=== PATIENT | female | born 1990 | race Caucasian/White ===

== ENCOUNTER 2016-06-27 05:48 | Inpatient (IN) | payer OTHER ==
[2016-06-27] MEDS ORDERED: Sodium Chloride 0.9% 10 ML Syringe FLUSH PRN (06:23)
[2016-06-27] MEDS ORDERED: Water For Irrigation,Sterile 1,000 ML Container IRR PRN (06:23)
[2016-06-27] MEDS ORDERED: Misoprostol 200 MCG Tab PO PRN (06:23)
[2016-06-27] MEDS ORDERED: Methylergonovine 0.2 MG/1 ML Amp IM PRN (06:23)
[2016-06-27] MEDS ORDERED: Butorphanol 1 MG/ML SDV IVPUSH PRN (06:23)
[2016-06-27] MEDS ORDERED: Lidocaine 1% 50 ML MDV INJECT PRN (06:23)
[2016-06-27] MEDS ORDERED: Carboprost Tromethamine 250 MCG/1 ML Amp IM PRN (06:23)
[2016-06-27] MEDS ORDERED: Ampicillin 2 GM in Sodium Chloride 0.9% 100 ML IV ONE (06:23)
[2016-06-27] MEDS ORDERED: Nalbuphine 10 MG/1 ML Vial IVPUSH PRN (06:23)
[2016-06-27] MEDS ORDERED: Sodium Chloride 0.9% 2.5 ML Syringe FLUSH PRN (06:23)
[2016-06-27] MEDS ORDERED: Oxytocin/Lactated Ringers 30 UNIT/500 ML BAG IV SCH ×2 (06:30→11:45)
[2016-06-27] MEDS: Lactated Ringers 1,000 ML IV SCH ×4 (06:50→19:37)
[2016-06-27] MEDS: Ampicillin 1 GM in Sodium Chloride 0.9% 50 ML IV SCH ×4 (11:34→23:22)
[2016-06-27] MEDS ORDERED: Terbutaline 1 MG/ML SDV SUBCUT PRN (11:42)
[2016-06-27] MEDS ORDERED: Ropivacaine HCl/PF 100 ML ONE (16:31)
[2016-06-27] MEDS ORDERED: fentaNYL 100 MCG/2 ML SDV ONE (16:31)
--- NOTE | 2016-06-27 17:11 | PCM.PREANE ---
Preanesthetic Assessment - Anesthesia/Transfusion/Family Hx Anesthesia History: Prior Anesthesia Without Reaction Transfusion History: No Prior Transfusion(s) - Review of Systems General: No Symptoms Pulmonary: No Symptoms Cardiovascular: No Symptoms Gastrointestinal: Nausea Neurological: No Symptoms Other: Reports: None - Physical Assessment Height: 5 ft 6 in Weight: 200 lb ASA Class: 1 Mental Status: Alert & Oriented x3 Airway Class: Mallampati = 2 Dentition: Reports: Normal Dentition Thyro-Mental Finger Breadths: 3 Mouth Opening Finger Breadths: 3 ROM/Head Extension: Full Lungs: Clear to auscultation, Normal respiratory effort Cardiovascular: Regular Rate, Regular Rhythm - Lab Values: Laboratory Last Values WBC 10.70 K/uL (4.0-11.0) 06/27/16 06:52 RBC 4.23 M/uL (4.30-5.90) L 06/27/16 06:52 Hgb 13.9 g/dL (12.0-16.0) 06/27/16 06:52 Hct 39.8 % (36.0-46.0) 06/27/16 06:52 MCV 94.1 fL (80.0-98.0) 06/27/16 06:52 MCH 32.9 pg (27.0-32.0) H 06/27/16 06:52 MCHC 34.9 g/dL (31.0-37.0) 06/27/16 06:52 RDW Std Deviation 40.7 fl (28.0-62.0) 06/27/16 06:52 RDW Coeff of Christiane 12 % (11.0-15.0) 06/27/16 06:52 Plt Count 229 K/uL (150-400) 06/27/16 06:52 MPV 9.30 fL (7.40-12.00) 06/27/16 06:52 Nucleated RBC % 0.0 /100WBC 06/27/16 06:52 Nucleated RBCs # 0 K/uL 06/27/16 06:52 Membrane Rupture POSITIVE 06/27/16 06:04 Blood Type AB NEGATIVE 06/27/16 06:52 Antibody Screen POSITIVE 06/27/16 06:52 Antibody Identification Anti-D 06/27/16 06:52 Crossmatch See Detail 06/27/16 06:52 - Allergies Allergies/Adverse Reactions: Allergies Allergy/AdvReac Type Severity Reaction Status Date / Time No Known Allergies Allergy Verified 06/27/16 06:21 - Blood Blood Available: No Product(s) Available: None - Anesthesia Plan Free Text/Narrative:: Labor Epidural Pre-Op Medication Ordered: None - Acknowledgements Anesthesia Type Planned: Epidural Pt an Appropriate Candidate for the Planned Anesthesia: Yes Alternatives and Risks of Anesthesia Discussed w Pt/Guardian: Yes Pt/Guardian Understands and Agrees with Anesthesia Plan: Yes PreAnesthesia Questionnaire GROUND LAYER History: Reports: Neurological History: Reports: Other (see below) (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) - Past Surgical History HEENT Surgical History: Reports: Tonsillectomy, Other (see below) Other HEENT Surgeries/Procedures: teeth extraction x2 - HOME MEDS Home Medications: Home Meds Vit W-Ca,Fe,FA(<1 mg) [ Vitamins] 1 tab PO DAILY 06/27/16 [ History] - CURRENT (IN HOUSE) MEDS Current Meds: Current Medications Butorphanol Tartrate (Stadol) 1 mg IVPUSH Q1H PRN PRN Reason: Pain Stop: 06/28/16 06:24 Carboprost Tromethamine (Hemabate Ds) 250 mcg IM ASDIRECTED PRN PRN Reason: Post Hemorrhage Lactated Ringer's (Ringers, Lactated) 1,000 mls @ 150 mls/hr IV ASDIRECTED MARY GRACE Last Admin: 06/27/16 17:01 Dose: 150 mls/hr Ampicillin Sodium 1 gm/ Sodium (Chloride) 50 mls @ 100 mls/hr IV Q4H MARY GRACE Last Admin: 06/27/16 15:35 Dose: 100 mls/hr Oxytocin/Lactated Ringer's (Pitocin In Lr 30 Units/500 Ml) 30 unit in 500 mls @ 2 mls/hr IV TITRATE MARY GRACE; 2 MUNITS/MIN PRN Reason: Protocol Last Titration: 06/27/16 16:02 Dose: 0 munits/min, 0 mls/hr Lidocaine HCl (Xylocaine 1%) 50 ml INJECT .ONCE PRN PRN Reason: Laceration repair Methylergonovine Maleate (Methergine) 0.2 mg IM ASDIRECTED PRN PRN Reason: Post Hemorrhage Misoprostol (Cytotec) 200 mcg PO .ONCE PRN PRN Reason: Post Hemorrhage Sodium Chloride (Saline Flush) 10 ml FLUSH ASDIRECTED PRN PRN Reason: Keep Vein Open Sodium Chloride (Saline Flush) 2.5 ml FLUSH ASDIRECTED PRN PRN Reason: Keep Vein Open Sterile Water (Sterile Water For Irrigation) 1,000 ml IRR ASDIRECTED PRN PRN Reason: delivery Terbutaline Sulfate (Brethine) 0.25 mg SUBCUT ASDIRECTED PRN PRN Reason: Tacysystole Discontinued Medications Fentanyl (Sublimaze) Confirm Administered Dose 100 mcg .ROUTE .STK-MED ONE Stop: 06/27/16 16:32 Ampicillin Sodium 2 gm/ Sodium (Chloride) 100 mls @ 200 mls/hr IV ONETIME ONE Stop: 06/27/16 06:52 Last Admin: 06/27/16 06:54 Dose: 200 mls/hr Oxytocin/Lactated Ringer's (Pitocin In Lr 30 Units/500 Ml) 30 unit in 500 mls @ 333 mls/hr IV TITRATE MARY GRACE Stop: 06/27/16 08:01 Ropivacaine (Naropin 0.2%) Confirm Administered Dose 100 mls @ as directed .ROUTE .STK-MED ONE Stop: 06/27/16 16:32 Nalbuphine HCl (Nubain) 10 mg IVPUSH Q1H PRN PRN Reason: Pain (severe 7-10) Stop: 06/27/16 08:24 Preanesthetic Assessment - PHYSICAL ASSESSMENT Height: 5 ft 6 in Weight: 200 lb - LAB Values: Laboratory Last Values WBC 10.70 K/uL (4.0-11.0) 06/27/16 06:52 RBC 4.23 M/uL (4.30-5.90) L 06/27/16 06:52 Hgb 13.9 g/dL (12.0-16.0) 06/27/16 06:52 Hct 39.8 % (36.0-46.0) 06/27/16 06:52 MCV 94.1 fL (80.0-98.0) 06/27/16 06:52 MCH 32.9 pg (27.0-32.0) H 06/27/16 06:52 MCHC 34.9 g/dL (31.0-37.0) 06/27/16 06:52 RDW Std Deviation 40.7 fl (28.0-62.0) 06/27/16 06:52 RDW Coeff of Christiane 12 % (11.0-15.0) 06/27/16 06:52 Plt Count 229 K/uL (150-400) 06/27/16 06:52 MPV 9.30 fL (7.40-12.00) 06/27/16 06:52 Nucleated RBC % 0.0 /100WBC 06/27/16 06:52 Nucleated RBCs # 0 K/uL 06/27/16 06:52 Membrane Rupture POSITIVE 06/27/16 06:04 Blood Type AB NEGATIVE 06/27/16 06:52 Antibody Screen POSITIVE 06/27/16 06:52 Antibody Identification Anti-D 06/27/16 06:52 Crossmatch See Detail 06/27/16 06:52 - ALLERGIES Allergies/Adverse Reactions: Allergies Allergy/AdvReac Type Severity Reaction Status Date / Time No Known Allergies Allergy Verified 06/27/16 06:21
[2016-06-28] MEDS ORDERED: Benzocaine/Menthol 20%-0.5% Spray 78 GM Cannister TOP PRN (01:22)
[2016-06-28] MEDS ORDERED: Docusate Sodium 100 MG Cap PO PRN (01:22)
[2016-06-28] MEDS ORDERED: Bisacodyl 10 MG Supp RECTAL PRN (01:22)
[2016-06-28] MEDS ORDERED: Lanolin 100% Cream 7 GM Tube TOP PRN (01:22)
[2016-06-28] MEDS ORDERED: Witch Hazel Medicated Pads 40/Jar TOP PRN (01:22)
[2016-06-28] MEDS ORDERED: oxyCODONE 5 MG Tab PO PRN (01:22)
[2016-06-28] MEDS ORDERED: Acetaminophen 500 MG Tab PO PRN (01:22)
--- NOTE | 2016-06-28 02:45 | OR ---
SURGEON: Emily Del Rosario DATE OF PROCEDURE: 06/28/2016 BRIEF PRE-DELIVERY HISTORY: This is a 26-year-old G1, P0, who on June 27, 2016, presented to Labor and Delivery with complaints of leakage of fluid. The patient was noted to be ruptured at 36 weeks and 1 day. The patient's GBS was unknown and the patient was started on IV ampicillin for GBS prophylaxis. The patient was eventually started on IV Pitocin for induction of labor secondary to no significant change in cervix over time. The patient eventually received her epidural at approximately 7 to 8 cm dilation. The patient continued to labor and eventually reached complete status. The patient started maternal expulsive efforts. With maternal expulsive efforts secondary to the patient being unrested and tired, the patient pushed for approximately an hour and started to fatigue and had minimal pushing efforts. With this noted and secondary to the fetus being , the patient was offered time to rest in order to get some energy, so that she would have increased efforts with pushing. The patient was allowed to rest approximately 45 minutes and maternal expulsive efforts were restarted and were successful. PREOPERATIVE DIAGNOSES: 1. Intrauterine at 36 weeks and 2 days. 2. Group B streptococcus unknown, on IV ampicillin. 3. premature rupture of membranes. 4. Induction of labor with IV Pitocin. POSTOPERATIVE DIAGNOSES: 1. Intrauterine at 36 weeks and 2 days. 2. Delivered. 3. Second-degree midline perineal laceration. PROCEDURE PERFORMED: 1. Spontaneous-assisted vaginal delivery. 2. Repair of midline second-degree perineal laceration. ANESTHESIA: Epidural. ESTIMATED BLOOD LOSS: 250 mL. FINDINGS: A viable female infant in vertex presentation with score of 7 and 9 at 1 and 5 minutes respectively and weight was pending at the time of dictation. Midline second-degree perineal laceration. Battledore placenta with 5 cm accessory lobe that appeared intact. SPECIMEN REMOVED: Placenta. CONDITION: Postoperatively, the patient and tolerated the procedure well. COMPLICATIONS: None known. DESCRIPTION OF PROCEDURE: This female, under epidural anesthesia, delivered a viable female , with score of 7 and 9 at 1 and 5 minutes respectively and weight not available at the time of dictation. Delivery was via spontaneous assisted vaginal delivery with infant in vertex presentation. Upon delivery of 's vertex, the neck was checked and there was no nuchal to be reduced and infant restituted right occiput transverse and with gentle downward traction and anterior shoulder was delivered followed by the body. The was bulb suctioned at delivery and placed directly on mom's abdomen at maternal request. Infant had a spontaneous cry. Cord was doubly clamped and cut. Cord blood was collected and sent for analysis. After delivery of the , IV Pitocin was given in bolus fashion as an uterotonic to prevent excessive maternal blood loss and to help expel the placenta. With signs of placental separation, a fundal massage was given along with traction on the umbilical cord and an intact appearing battledore placenta with approximately 5 cm accessory lobe was delivered. After delivery of infant and placenta, the vagina, perineum, and rectum were explored and patient had a midline second-degree perineal laceration that was repaired with a 2-0 Vicryl suture and 3-0 Vicryl suture. The crown stitches were placed with 2-0 Vicryl suture to reinforce the bulbocavernosus muscle and the remainder was repaired with 3-0 Vicryl suture in the usual three layer fashion. Afterwards, the lower uterine segment and vagina was cleared of all clots and debris. Afterwards, the patient was cleansed, pads were changed, and the bed was returned to functioning status. The patient and tolerated the procedure well and was in maternal arms bonding at the end of procedure. Sponge, lap, needle, and instrument counts were correct. MICHELE / CLARK /[id number] JUSTIN
--- NOTE | 2016-06-28 08:26 | PCM.PNPP ---
- General Info Date of Service: 06/28/16 Functional Status: Reports: pain controlled, tolerating diet, ambulating, urinating - Review of Systems General: Reports: No Symptoms HEENT: Reports: no symptoms Pulmonary: Reports: no symptoms Cardiovascular: Reports: No Symptoms Gastrointestinal: Reports: No symptoms Genitourinary: Reports: no symptoms Musculoskeletal: Reports: no symptoms Skin: Reports: no symptoms Neurological: Reports: No Symptoms Psychiatric: Reports: no symptoms - General Info Date of Service: 06/28/16 - Patient Data Vital Signs - most recent: Last Vital Signs Temp 36.9 C 06/28/16 05:10 Pulse 110 H 06/28/16 05:10 Resp 15 06/28/16 05:10 BP 125/84 06/28/16 05:10 Pulse Ox 98 06/28/16 05:10 Weight - most recent: 90.718 kg Lab Results - last 24 hrs: Laboratory Results - last 24 hr 06/27/16 06/28/16 Range/Units 06:52 01:22 Blood Type AB NEGATIVE Antibody Screen POSITIVE Antibody Identification Anti-D Rhogam Indicated NO, MOM+BABY RH NEG Crossmatch See Detail Med Orders - Current: Current Medications Acetaminophen (Tylenol Extra Strength) 500 mg PO Q4H PRN PRN Reason: Pain Benzocaine/Menthol (Dermoplast Pain Relief 20%-0.5% [place]) 78 gm TOP ASDIRECTED PRN PRN Reason: Perineal Comfort Measure Last Admin: 06/28/16 04:38 Dose: 1 canister Bisacodyl (Dulcolax) 10 mg RECTAL .ONCE PRN PRN Reason: Constipation Carboprost Tromethamine (Hemabate Ds) 250 mcg IM ASDIRECTED PRN PRN Reason: Post Hemorrhage Docusate Sodium (Colace) 100 mg PO BID PRN PRN Reason: Constipation Emollient Ointment (Lansinoh Hpa) 0 gm TOP ASDIRECTED PRN PRN Reason: Sore Nipples Last Admin: 06/28/16 04:39 Dose: 1 tube Lactated Ringer's (Ringers, Lactated) 1,000 mls @ 150 mls/hr IV ASDIRECTED MARY GRACE Last Admin: 06/27/16 19:37 Dose: 150 mls/hr Ampicillin Sodium 1 gm/ Sodium (Chloride) 50 mls @ 100 mls/hr IV Q4H MARY GRACE Last Admin: 06/27/16 23:22 Dose: 100 mls/hr Oxytocin/Lactated Ringer's (Pitocin In Lr 30 Units/500 Ml) 30 unit in 500 mls @ 2 mls/hr IV TITRATE MARY GRACE; 2 MUNITS/MIN PRN Reason: Protocol Last Titration: 06/28/16 01:07 Dose: Infused Ibuprofen (Motrin) 800 mg PO Q6H PRN PRN Reason: Pain Lidocaine HCl (Xylocaine 1%) 50 ml INJECT .ONCE PRN PRN Reason: Laceration repair Methylergonovine Maleate (Methergine) 0.2 mg IM ASDIRECTED PRN PRN Reason: Post Hemorrhage Misoprostol (Cytotec) 200 mcg PO .ONCE PRN PRN Reason: Post Hemorrhage Oxycodone HCl (Oxycodone) 5 mg PO Q2H PRN PRN Reason: Pain Sodium Chloride (Saline Flush) 10 ml FLUSH ASDIRECTED PRN PRN Reason: Keep Vein Open Sodium Chloride (Saline Flush) 2.5 ml FLUSH ASDIRECTED PRN PRN Reason: Keep Vein Open Sterile Water (Sterile Water For Irrigation) 1,000 ml IRR ASDIRECTED PRN PRN Reason: delivery Terbutaline Sulfate (Brethine) 0.25 mg SUBCUT ASDIRECTED PRN PRN Reason: Tacysystole Witch Emily (Tucks) 1 pad TOP ASDIRECTED PRN PRN Reason: comfort care Last Admin: 06/28/16 04:38 Dose: 1 tub Discontinued Medications Butorphanol Tartrate (Stadol) 1 mg IVPUSH Q1H PRN PRN Reason: Pain Stop: 06/28/16 06:24 Fentanyl (Sublimaze) Confirm Administered Dose 100 mcg .ROUTE .STK-MED ONE Stop: 06/27/16 16:32 Ampicillin Sodium 2 gm/ Sodium (Chloride) 100 mls @ 200 mls/hr IV ONETIME ONE Stop: 06/27/16 06:52 Last Admin: 06/27/16 06:54 Dose: 200 mls/hr Oxytocin/Lactated Ringer's (Pitocin In Lr 30 Units/500 Ml) 30 unit in 500 mls @ 333 mls/hr IV TITRATE MARY GRACE Stop: 06/27/16 08:01 Ropivacaine (Naropin 0.2%) Confirm Administered Dose 100 mls @ as directed .ROUTE .STK-MED ONE Stop: 06/27/16 16:32 Nalbuphine HCl (Nubain) 10 mg IVPUSH Q1H PRN PRN Reason: Pain (severe 7-10) Stop: 06/27/16 08:24 - Interaction Infant Disposition, : in Room with Family Infant Feeding: Breastfed Infant; Nursed Well Support Person: - Recovery Exam Fundal Tone: Firm Fundal Level: 2 Fingerbreadths Below Umbilicus Fundal Placement: Midline Lochia Amount: Small Lochia Color: Rubra/Red Episiotomy/Laceration: Approximated Bladder Status: Voiding Urinary Elimination: Voided - Exam General: alert, oriented HEENT: Pupils equal Neck: supple Lungs: Normal respiratory effort Abdomen: soft, no tenderness, no distension Extremities: no edema Skin: warm, dry, intact Neurological: no new focal deficit Psy/Mental Status: alert, normal affect, normal mood - Problem List & Annotations (1) premature rupture of membranes (PPROM) delivered, current hospitalization SNOMED Code(s): 169687108 Code(s): O42.919 - PRETRM PEYTON ROM, UNSP TIME BETW RUPT AND ONST LABR, UNSP TRI Status: Acute Current Visit: Yes - Problem List Review Problem List Initiated/Reviewed/Updated: Yes - My Orders Last 24 Hours: My Active Orders 06/27/16 11:30 Ampicillin 1 gm Sodium Chloride 0.9% [Normal Saline] 50 ml IV Q4H 06/27/16 11:42 Bedrest Bathroom Privileges [RC] ASDIRECTED Communication Order [RC] ASDIRECTED Communication Order [RC] ASDIRECTED Notify Provider [RC] PRN Oxygen Therapy [RC] ASDIRECTED Vaginal Exam [RC] PRN Vital Signs [RC] PER UNIT ROUTINE Terbutaline [Brethine] 0.25 mg SUBCUT ASDIRECTED PRN 06/27/16 11:45 Oxytocin/Lactated Ringers [Pitocin in LR 30 Units/500 ML] 30 unit in 500 ml IV TITRATE Medication Administration Instruction [OM.PC] Q3H 06/28/16 08:20 CBC W/O DIFF,HEMOGRAM [HEME] Routine - Assessment Assessment:: PPD#0 after later , stable, minimal lochia, has not used any pain medications. Would like to go home today if approved by peds - Plan Plan:: Continue care, discharge instructions reviewed will get CBC now, if stable, remove IV ok to be discharged if baby is approved to go home
[2016-06-28] MEDS: Ibuprofen 800 MG Tab PO PRN ×2 (10:18→18:52)
--- NOTE | 2016-06-28 16:00 | PCM48HPAN ---
Post Anesthesia Note - EVALUATION WITHIN 48HRS OF ANESTHETIC Vital Signs in Normal Range: Yes Patient Participated in Evaluation: Yes Respiratory Function Stable: Yes Airway Patent: Yes Cardiovascular Function Stable: Yes Hydration Status Stable: Yes Pain Control Satisfactory: Yes Nausea and Vomiting Control Satisfactory: Yes Mental Status Recovered: Yes
[2016-06-29] MEDS: Ampicillin 1 GM in Sodium Chloride 0.9% 50 ML IV SCH ×2 (00:58→00:59)
[2016-06-29 08:23] VITALS: BP 115/80
--- NOTE | 2016-06-29 08:47 | PCM.PNPP ---
- General Info Date of Service: 06/29/16 Functional Status: Reports: pain controlled, tolerating diet, ambulating, urinating - Review of Systems General: Reports: No Symptoms HEENT: Reports: no symptoms Pulmonary: Reports: no symptoms Cardiovascular: Reports: No Symptoms Gastrointestinal: Reports: No symptoms Genitourinary: Reports: no symptoms Musculoskeletal: Reports: no symptoms Skin: Reports: no symptoms Neurological: Reports: No Symptoms Psychiatric: Reports: no symptoms - Patient Data Vital Signs - most recent: Last Vital Signs Temp 36.8 C 06/29/16 08:00 Pulse 80 06/29/16 08:00 Resp 14 06/29/16 08:00 BP 115/80 06/29/16 08:00 Pulse Ox 98 06/29/16 08:00 Weight - most recent: 90.718 kg Lab Results - last 24 hrs: Laboratory Results - last 24 hr 06/29/16 Range/Units 04:08 Hgb 12.5 (12.0-16.0) g/dL Hct 36.3 (36.0-46.0) % Med Orders - Current: Current Medications Acetaminophen (Tylenol Extra Strength) 500 mg PO Q4H PRN PRN Reason: Pain Benzocaine/Menthol (Dermoplast Pain Relief 20%-0.5% [place]) 78 gm TOP ASDIRECTED PRN PRN Reason: Perineal Comfort Measure Last Admin: 06/28/16 04:38 Dose: 1 canister Bisacodyl (Dulcolax) 10 mg RECTAL .ONCE PRN PRN Reason: Constipation Carboprost Tromethamine (Hemabate Ds) 250 mcg IM ASDIRECTED PRN PRN Reason: Post Hemorrhage Docusate Sodium (Colace) 100 mg PO BID PRN PRN Reason: Constipation Emollient Ointment (Lansinoh Hpa) 0 gm TOP ASDIRECTED PRN PRN Reason: Sore Nipples Last Admin: 06/28/16 04:39 Dose: 1 tube Lactated Ringer's (Ringers, Lactated) 1,000 mls @ 150 mls/hr IV ASDIRECTED [facility] Last Admin: 06/27/16 19:37 Dose: 150 mls/hr Ampicillin Sodium 1 gm/ Sodium (Chloride) 50 mls @ 100 mls/hr IV Q4H [facility] Last Admin: 06/29/16 00:59 Dose: Not Given Oxytocin/Lactated Ringer's (Pitocin In Lr 30 Units/500 Ml) 30 unit in 500 mls @ 2 mls/hr IV TITRATE MARY GRACE; 2 MUNITS/MIN PRN Reason: Protocol Last Titration: 06/28/16 01:07 Dose: Infused Ibuprofen (Motrin) 800 mg PO Q6H PRN PRN Reason: Pain Last Admin: 06/28/16 18:52 Dose: 800 mg Lidocaine HCl (Xylocaine 1%) 50 ml INJECT .ONCE PRN PRN Reason: Laceration repair Methylergonovine Maleate (Methergine) 0.2 mg IM ASDIRECTED PRN PRN Reason: Post Hemorrhage Misoprostol (Cytotec) 200 mcg PO .ONCE PRN PRN Reason: Post Hemorrhage Oxycodone HCl (Oxycodone) 5 mg PO Q2H PRN PRN Reason: Pain Sodium Chloride (Saline Flush) 10 ml FLUSH ASDIRECTED PRN PRN Reason: Keep Vein Open Sodium Chloride (Saline Flush) 2.5 ml FLUSH ASDIRECTED PRN PRN Reason: Keep Vein Open Sterile Water (Sterile Water For Irrigation) 1,000 ml IRR ASDIRECTED PRN PRN Reason: delivery Terbutaline Sulfate (Brethine) 0.25 mg SUBCUT ASDIRECTED PRN PRN Reason: Tacysystole Witch Emily (Tucks) 1 pad TOP ASDIRECTED PRN PRN Reason: comfort care Last Admin: 06/28/16 04:38 Dose: 1 tub Discontinued Medications Butorphanol Tartrate (Stadol) 1 mg IVPUSH Q1H PRN PRN Reason: Pain Stop: 06/28/16 06:24 Fentanyl (Sublimaze) Confirm Administered Dose 100 mcg .ROUTE .STK-MED ONE Stop: 06/27/16 16:32 Ampicillin Sodium 2 gm/ Sodium (Chloride) 100 mls @ 200 mls/hr IV ONETIME ONE Stop: 06/27/16 06:52 Last Admin: 06/27/16 06:54 Dose: 200 mls/hr Oxytocin/Lactated Ringer's (Pitocin In Lr 30 Units/500 Ml) 30 unit in 500 mls @ 333 mls/hr IV TITRATE MARY GRACE Stop: 06/27/16 08:01 Ropivacaine (Naropin 0.2%) Confirm Administered Dose 100 mls @ as directed .ROUTE .STK-MED ONE Stop: 06/27/16 16:32 Nalbuphine HCl (Nubain) 10 mg IVPUSH Q1H PRN PRN Reason: Pain (severe 7-10) Stop: 06/27/16 08:24 - Infant Interaction Disposition, : in Room with Family Feeding: Breastfed Infant; Nursed Well Support Person: - Recovery Exam Fundal Tone: Firm Fundal Level: 1 Fingerbreadths Below Umbilicus Fundal Placement: Midline Lochia Amount: Small Lochia Color: Rubra/Red Perineum Description: Intact, Minimal Bruising/Swelling Other Perinuem Description: 2nd degree perineal laceration Episiotomy/Laceration: Approximated Bladder Status: Voiding Urinary Elimination: Voided - Exam General: alert, oriented HEENT: Pupils equal Extremities: no edema Skin: warm, dry, intact Neurological: no new focal deficit Psy/Mental Status: alert, normal affect, normal mood - Problem List & Annotations (1) premature rupture of membranes (PPROM) delivered, current hospitalization SNOMED Code(s): 122627466 Code(s): O42.919 - PRETRM [place] ROM, UNSP TIME BETW RUPT AND ONST LABR, UNSP TRI Status: Acute Current Visit: Yes - Problem List Review Problem List Initiated/Reviewed/Updated: Yes - My Orders Last 24 Hours: My Active Orders 06/28/16 08:27 Ready for Discharge [RC] PER UNIT ROUTINE - Assessment Assessment:: PPD#1 stayed due to baby, she will go home today, is going well, no complaints, denies pain. - Plan Plan:: discharge instructions reviewed
== END 2016-06-29 13:00 | disposition home or self-care (01) | DRG 775 ==
LOC: MW.OBCHECK 05:48 → MW.OB 05:48 → MW.OBCHECK 06:23 → MW.OB 06:23 → OBSVTOIN 06-28 00:32 → MW.OB 06-28 14:00
PROVIDERS: ADMIT Obstetrics & Gynecology; ATTEND Obstetrics & Gynecology
PROC: 10E0XZZ Delivery of Products of Conception, External Approach (ICD-10-PCS; principal; 2016-06-28)
PROC: 0KQM0ZZ Repair Perineum Muscle, Open Approach (ICD-10-PCS; 2016-06-28)
DX: O42.013 Preterm premature rupture of membranes, onset of labor within 24 hours of rupture, third trimester (principal); Z3A.36 36 weeks gestation of pregnancy; Z37.0 Single live birth
CPT/HCPCS: 01967; 36415; 59025; 84112; 85014; 85018; 85027; 86850; 86870; 86900; 86901; 86920; 86921; 86922; 87081; 88307; A9270-GY; J0290; J2795; J3010; J7030; J7050; J7120

== ENCOUNTER 2019-05-28 05:39 | Inpatient (IN) | payer OTHER ==
[2019-05-28] MEDS ORDERED: Sodium Chloride 0.9% 10 ML Syringe FLUSH PRN (06:33)
[2019-05-28] MEDS ORDERED: Tranexamic Acid 1,000 MG in Sodium Chloride 0.9% 100 ML IV PRN ×2 (06:33→13:58)
[2019-05-28] MEDS ORDERED: Lidocaine 1% 50 ML MDV INJECT PRN (06:33)
[2019-05-28] MEDS ORDERED: Butorphanol 1 MG/ML SDV IVPUSH PRN (06:33)
[2019-05-28] MEDS ORDERED: Sodium Chloride 0.9% 10 ML SDV IV PRN (06:33)
[2019-05-28] MEDS ORDERED: Water For Irrigation,Sterile 1,000 ML Container IRR PRN (06:33)
[2019-05-28] MEDS ORDERED: Sodium Chloride 0.9% 2.5 ML Syringe FLUSH PRN (06:33)
[2019-05-28] MEDS ORDERED: Nalbuphine 10 MG/1 ML Vial IVPUSH PRN (06:33)
[2019-05-28] MEDS ORDERED: Methylergonovine 0.2 MG/1 ML Amp IM PRN ×2 (06:33→13:58)
[2019-05-28] MEDS ORDERED: Misoprostol 200 MCG Tab PO PRN (06:33)
[2019-05-28] MEDS ORDERED: Carboprost Tromethamine 250 MCG/1 ML Amp IM PRN (06:33)
[2019-05-28] MEDS ORDERED: Ampicillin 2 GM in Sodium Chloride 0.9% 100 ML IV ONE (06:40)
[2019-05-28] MEDS ORDERED: Oxytocin/0.9 % Sodium Chloride 30 UNIT/500 ML BAG IV SCH (06:45)
[2019-05-28] MEDS: Lactated Ringers 1,000 ML IV SCH ×2 (06:58→13:02)
[2019-05-28] MEDS ORDERED: Misoprostol 50 MCG (1/2 of 100 MCG) Tab VAG ONE (07:23)
[2019-05-28] MEDS ORDERED: Ampicillin 1 GM AdvVial IV ONE (10:20)
[2019-05-28] MEDS ORDERED: Sodium Chloride 0.9% 0 ML ONE (10:22)
[2019-05-28] MEDS ORDERED: Ampicillin 1 GM in Sodium Chloride 0.9% 50 ML IV SCH ×3 (10:45→11:00)
[2019-05-28] MEDS ORDERED: oxyCODONE 5 MG Tab PO PRN (13:58)
[2019-05-28] MEDS ORDERED: Witch Hazel Medicated Pads 40/Jar TOP PRN (13:58)
[2019-05-28] MEDS ORDERED: Acetaminophen 500 MG Tab PO PRN (13:58)
[2019-05-28] MEDS ORDERED: Lanolin 100% Cream 7 GM Tube TOP PRN (13:58)
[2019-05-28] MEDS ORDERED: Benzocaine/Menthol 20%-0.5% Spray 78 GM Cannister TOP PRN (13:58)
[2019-05-28] MEDS ORDERED: Docusate Sodium 100 MG Cap PO PRN (13:58)
[2019-05-28] MEDS ORDERED: Bisacodyl 10 MG Supp RECTAL PRN (13:58)
[2019-05-28] MEDS ORDERED: Ibuprofen 400 MG Tab PO PRN (13:58)
--- NOTE | 2019-05-28 14:04 | PCM.DEL ---
L & D Note - General Info Date of Service: 05/28/19 Mother's Due Date: 06/11/19 - Delivery Note Cervical Ripening Method: Misoprostil (PROM with cytotec induction) Delivery Outcome: Livebirth Infant Delivery Method: Spontaneous Vaginal Delivery-Single Presentation: Left Occiput Anterior (KIM) Nuchal Cord: None Prep: Other Anesthesia Type: Other (see below) (pudendal) Anesthetic: Lidocaine (Xylocaine) 0.5% Plain Local Anesthetic Volume: Other (20 ml ) Amniotic Fluid Description: Clear Episiotomy Type: None Laceration: 2nd Degree Suture type: Vicryl Suture size: 3-0 Placenta: Intact, Spontaneous Cord: 3 Vessels Estimated Blood Loss: 300 Resuscitation Needed: Yes : Suctioned, Bulb Syringe, Stimulated Score 1 min: 8 Score 5 min: 9 Delivery Comments (Free Text/Narrative):: Liveborn male weight pending. - General Info Date of Service: 05/28/19 - Patient Data Weight - Most Recent: 93.44 kg Lab Results Last 24 Hours: Laboratory Results - last 24 hr 05/28/19 05/28/19 05/28/19 Range/Units 05:50 06:53 06:53 WBC 11.16 H (4.0-11.0) K/uL RBC 4.01 L (4.30-5.90) M/uL Hgb 13.3 (12.0-16.0) g/dL Hct 38.8 (36.0-46.0) % MCV 96.8 (80.0-98.0) fL MCH 33.2 H (27.0-32.0) pg MCHC 34.3 (31.0-37.0) g/dL RDW Std Deviation 43.9 (28.0-62.0) fl RDW Coeff of Christiane 13 (11.0-15.0) % Plt Count 218 (150-400) K/uL MPV 9.00 (7.40-12.00) fL Nucleated RBC % 0.0 /100WBC Nucleated RBCs # 0 K/uL Membrane Rupture POSITIVE Blood Type AB NEGATIVE Antibody Screen POSITIVE Antibody Identification Anti-D Med Orders - Current: Current Medications Discontinued Medications Ampicillin Sodium (Ampicillin) Confirm Administered Dose 1 gm IV .STK-MED ONE Stop: 03/04/20 10:21 Butorphanol Tartrate (Stadol) 1 mg IVPUSH Q1H PRN PRN Reason: Pain Last Admin: 05/28/19 13:13 Dose: 1 mg Carboprost Tromethamine (Hemabate Ds) 250 mcg IM ASDIRECTED PRN PRN Reason: Post Hemorrhage Tranexamic Acid 1,000 mg/ (Sodium Chloride) 110 mls @ 660 mls/hr IV ONETIME PRN PRN Reason: Bleeding Ampicillin Sodium 2 gm/ Sodium (Chloride) 100 mls @ 200 mls/hr IV ONETIME ONE Stop: 05/28/19 07:09 Last Admin: 05/28/19 06:58 Dose: 200 mls/hr Lactated Ringer's (Ringers, Lactated) 1,000 mls @ 150 mls/hr IV ASDIRECTED MARY GRACE Last Admin: 05/28/19 13:02 Dose: 150 mls/hr Oxytocin/Sodium Chloride (Oxytocin 30 Unit/500 Ml-Ns) 30 unit in 500 mls @ 500 mls/hr IV TITRATE MARY GRACE Ampicillin Sodium 1 gm/ Sodium (Chloride) 50 mls @ 100 mls/hr IV Q4H MARY GRACE Ampicillin Sodium 1 gm/ Sodium (Chloride) 50 mls @ 100 mls/hr IV Q4H MARY GRACE Sodium Chloride (Normal Saline) Confirm Administered Dose 0 mls @ as directed .ROUTE .STK-MED ONE Stop: 05/28/19 10:23 Ampicillin Sodium 1 gm/ Sodium (Chloride) 50 mls @ 100 mls/hr IV Q4H MARY GRACE Last Admin: 05/28/19 10:47 Dose: 100 mls/hr Lidocaine HCl (Xylocaine 1%) 50 ml INJECT ONETIME PRN PRN Reason: Laceration repair Last Admin: 05/28/19 13:30 Dose: 50 ml Methylergonovine Maleate (Methergine) 0.2 mg IM ASDIRECTED PRN PRN Reason: Post Hemorrhage Misoprostol (Cytotec) 200 mcg PO ONETIME PRN PRN Reason: Post Hemorrhage Misoprostol (Cytotec) 25 mcg VAG ONETIME ONE Stop: 05/28/19 07:24 Last Admin: 05/28/19 07:47 Dose: 25 mcg Nalbuphine HCl (Nubain) 10 mg IVPUSH Q1H PRN PRN Reason: Pain (severe 7-10) Sodium Chloride (Saline Flush) 10 ml FLUSH ASDIRECTED PRN PRN Reason: Keep Vein Open Sodium Chloride (Saline Flush) 2.5 ml FLUSH ASDIRECTED PRN PRN Reason: Keep Vein Open Sodium Chloride (Normal Saline) 10 ml IV ASDIRECTED PRN PRN Reason: IV Use Sterile Water (Sterile Water For Irrigation) 1,000 ml IRR ASDIRECTED PRN PRN Reason: delivery Last Admin: 05/28/19 13:07 Dose: 1,000 ml - Problem List & Annotations (1) PROM with onset of labor within 24 hours, [facility] Code(s): 212390071, 942520128 Code(s): O42.00 - PEYTON ROM, ONSET LABOR W/N 24 HR OF RUPT, UNSP WEEKS OF GEST Status: Acute Current Visit: Yes - Problem List Review Problem List Initiated/Reviewed/Updated: Yes - My Orders Last 24 Hours: My Active Orders 05/28/19 06:00 Vital Signs [RC] PER UNIT ROUTINE 05/28/19 06:33 May Shower [RC] ASDIRECTED 05/28/19 06:53 RPR (SYPHILIS SERO) W/ RFLX [REF] Routine 05/28/19 13:40 BLOOD GAS ARTERIAL UMBILICAL [BG] Urgent BLOOD GAS VENOUS UMBILICAL [BG] Urgent 05/28/19 13:58 Patient Status [ADT] Routine July Shower [RC] ASDIRECTED Up ad [place] [RC] ASDIRECTED Vital Signs [RC] PER UNIT ROUTINE RHIG WORKUP, [BBK] Routine Acetaminophen [Tylenol Extra Strength] 1,000 mg PO Q4H PRN Acetaminophen [Tylenol Extra Strength] 500 mg PO Q4H PRN Benzocaine/Menthol [Dermoplast Pain Relief 20%-0.5% [place]] 78 gm TOP ASDIRECTED PRN Docusate Sodium [Colace] 100 mg PO BID PRN Ibuprofen [Motrin] 400 mg PO Q4H PRN Ibuprofen [Motrin] 800 mg PO Q6H PRN Lanolin [Lansinoh HPA] See Dose Instructions TOP ASDIRECTED PRN Methylergonovine [Methergine] 0.2 mg IM ONETIME PRN Tranexamic Acid [Cyklokapron] 1,000 mg Sodium Chloride 0.9% [Normal Saline] 100 ml IV ONETIME bisacodyL [Dulcolax] 10 mg RECTAL ONETIME PRN oxyCODONE 5 mg PO Q2H PRN yanelis Rodriguez [Tucks] 1 pad TOP ASDIRECTED PRN Assess Lochia [WOMSER] Per Unit Routine Assess Uterine Involution [WOMSER] Per Unit Routine Peripheral IV Discontinue [OM.PC] Routine Resuscitation Status Routine 05/28/19 13:59 Perineal Care [OM.PC] Per Unit Routine 05/28/19 Dinner Regular Diet [DIET] 05/29/19 05:11 HEMOGLOBIN/HEMATOCRIT,HH [HEME] Timed
[2019-05-28] MEDS: Acetaminophen 500 MG Tab PO PRN ×2 (14:53→20:35)
[2019-05-28] MEDS: Ibuprofen 800 MG Tab PO PRN (14:54)
--- NOTE | 2019-05-28 15:30 | OR ---
SURGEON: Katherine Almanza M.D. DATE OF PROCEDURE: 05/28/2019 PREOPERATIVE DIAGNOSES: A 38-week intrauterine , rupture of membranes with induction, group B strep positive. POSTOPERATIVE DIAGNOSES: A 38-week intrauterine , rupture of membranes with induction, group B strep positive. PROCEDURES: Cytotec induction of labor, term spontaneous vaginal delivery, repair of second- degree laceration. PRIMARY SURGEON: Katherine Almanza MD. ANESTHESIA: Pudendal. ESTIMATED BLOOD LOSS: Less than 300 mL. FINDINGS: Liveborn male. score of 8 and 9. Weight is pending at the time of dictation. Placenta spontaneous, Schultze intact, with 3 vessels. Second- degree perineal laceration repaired. COMPLICATIONS: None known. DISPOSITION: Mother and baby are in LDR in good condition. BRIEF HISTORY: This is a 29-year-old female, G2, P 1-0-0-1. She presents at 38 weeks' gestation with spontaneous rupture of membranes. She is known to be group B strep positive. She presented to the hospital approximately 1-1/2 hours after rupture of membranes. She was started on ampicillin for group B strep prophylaxis. She was 1 to 2 cm, 50% effaced. She received a single dose of Cytotec which induced spontaneous labor, and she progressed to complete and did receive 2 doses of ampicillin prior to delivery. DESCRIPTION OF PROCEDURE: With the patient in dorsal lithotomy position, the patient began pushing. After discussion, she did request a pudendal block, which was performed by placing 10 mL of 1% lidocaine 2 cm medial and inferior to the spinous process on the right and left, and with this, she did have good anesthesia of the perineum. She continued to push over approximately 20-minute time period to a 5+ station, at which time, the head was delivered spontaneously and atraumatically over the perineum with support with subsequent delivery of the 's shoulders and body without any difficulty. The infant was bulb suctioned by nose and mouth and after the cord had ceased to pulsate it was doubly clamped and cut. The was handed to the mother in the presence of nursing at delivery. The is a liveborn male. score of 8 and 9. Weight is pending at the time of dictation. Cord blood was collected for cord ABGs as well as routine cord blood sampling. Pitocin was initiated after delivery of the infant to assist with delivery of the placenta, which was delivered spontaneously, Schultze intact, with 3 vessels. Upon inspection of pelvis and perineum, there were no periurethral, vaginal sidewall, cervical, or rectal lacerations. There was a second-degree perineal laceration. 10 mL of additional lidocaine was injected into the tissue and 3-0 Vicryl was utilized for a running lock suture to reapproximate the vaginal mucosa followed by a deep running suture of the perineum and a subcuticular suture of the same for the skin. Final sponge, needle, and instrument counts were correct. There were no known complications. Mother and baby are in LDR in good condition. AKIKO / CLARK /[id number]
--- NOTE | 2019-05-29 08:25 | PCM.PNPP ---
- General Info Date of Service: 05/29/19 Functional Status: Reports: Pain Controlled, Tolerating Diet, Ambulating, Urinating - Review of Systems General: Reports: No Symptoms HEENT: Reports: No Symptoms Pulmonary: Reports: No Symptoms Cardiovascular: Reports: No Symptoms Gastrointestinal: Reports: No Symptoms Genitourinary: Reports: No Symptoms Musculoskeletal: Reports: No Symptoms Skin: Reports: No Symptoms Neurological: Reports: No Symptoms Psychiatric: Reports: No Symptoms - General Info Date of Service: 05/29/19 - Patient Data Vital Signs - Most Recent: Last Vital Signs Temp 36.3 C 05/29/19 04:38 Pulse 69 05/29/19 04:38 Resp 17 05/29/19 04:38 BP 136/75 05/29/19 04:38 Pulse Ox 98 05/29/19 04:38 Weight - Most Recent: 93.44 kg Lab Results - Last 24 Hours: Laboratory Results - last 24 hr 05/28/19 05/28/19 05/29/19 Range/Units 13:40 13:58 05:18 Hgb 11.7 L (12.0-16.0) g/dL Hct 34.8 L (36.0-46.0) % Cord ABG pH 7.388 H (7.18-7.38) Cord ABG Base Excess -2 (-10--2) Cord VBG pH 7.392 (7.25-7.45) Cord VBG Base Excess -3 (-10--2) Rhogam Indicated NO, MOM+BABY RH NEG Med Orders - Current: Current Medications Acetaminophen (Tylenol Extra Strength) 500 mg PO Q4H PRN PRN Reason: Pain Acetaminophen (Tylenol Extra Strength) 1,000 mg PO Q4H PRN PRN Reason: Pain Last Admin: 05/28/19 20:35 Dose: 1,000 mg Benzocaine/Menthol (Dermoplast Pain Relief 20%-0.5% [place]) 78 gm TOP ASDIRECTED PRN PRN Reason: Perineal Comfort Measure Last Admin: 05/28/19 14:56 Dose: 1 canister Bisacodyl (Dulcolax) 10 mg RECTAL ONETIME PRN PRN Reason: Constipation Docusate Sodium (Colace) 100 mg PO BID PRN PRN Reason: Constipation Last Admin: 05/28/19 14:55 Dose: 100 mg Emollient Ointment (Lansinoh Hpa) 0 gm TOP ASDIRECTED PRN PRN Reason: Sore Nipples Last Admin: 05/28/19 14:55 Dose: 7 gm Tranexamic Acid 1,000 mg/ (Sodium Chloride) 110 mls @ 660 mls/hr IV ONETIME PRN PRN Reason: Bleeding Ibuprofen (Motrin) 400 mg PO Q4H PRN PRN Reason: Pain Ibuprofen (Motrin) 800 mg PO Q6H PRN PRN Reason: Pain Last Admin: 05/28/19 14:54 Dose: 800 mg Methylergonovine Maleate (Methergine) 0.2 mg IM ONETIME PRN PRN Reason: Excessive Vaginal Bleeding Oxycodone HCl (Oxycodone) 5 mg PO Q2H PRN PRN Reason: Pain Witch Jennifer (Tucks) 1 pad TOP ASDIRECTED PRN PRN Reason: comfort care Last Admin: 05/28/19 14:56 Dose: 1 tub Discontinued Medications Ampicillin Sodium (Ampicillin) Confirm Administered Dose 1 gm IV .STK-MED ONE Stop: 05/28/19 10:21 Butorphanol Tartrate (Stadol) 1 mg IVPUSH Q1H PRN PRN Reason: Pain Last Admin: 05/28/19 13:13 Dose: 1 mg Carboprost Tromethamine (Hemabate Ds) 250 mcg IM ASDIRECTED PRN PRN Reason: Post Hemorrhage Tranexamic Acid 1,000 mg/ (Sodium Chloride) 110 mls @ 660 mls/hr IV ONETIME PRN PRN Reason: Bleeding Ampicillin Sodium 2 gm/ Sodium (Chloride) 100 mls @ 200 mls/hr IV ONETIME ONE Stop: 05/28/19 07:09 Last Admin: 05/28/19 06:58 Dose: 200 mls/hr Lactated Ringer's (Ringers, Lactated) 1,000 mls @ 150 mls/hr IV ASDIRECTED [facility] Last Admin: 05/28/19 13:02 Dose: 150 mls/hr Oxytocin/Sodium Chloride (Oxytocin 30 Unit/500 Ml-Ns) 30 unit in 500 mls @ 500 mls/hr IV TITRATE [facility] Ampicillin Sodium 1 gm/ Sodium (Chloride) 50 mls @ 100 mls/hr IV Q4H [facility] Ampicillin Sodium 1 gm/ Sodium (Chloride) 50 mls @ 100 mls/hr IV Q4H [facility] Sodium Chloride (Normal Saline) Confirm Administered Dose 0 mls @ as directed .ROUTE .STK-MED ONE Stop: 05/28/19 10:23 Ampicillin Sodium 1 gm/ Sodium (Chloride) 50 mls @ 100 mls/hr IV Q4H [facility] Last Admin: 05/28/19 10:47 Dose: 100 mls/hr Lidocaine HCl (Xylocaine 1%) 50 ml INJECT ONETIME PRN PRN Reason: Laceration repair Last Admin: 05/28/19 13:30 Dose: 50 ml Methylergonovine Maleate (Methergine) 0.2 mg IM ASDIRECTED PRN PRN Reason: Post Hemorrhage Misoprostol (Cytotec) 200 mcg PO ONETIME PRN PRN Reason: Post Hemorrhage Misoprostol (Cytotec) 25 mcg VAG ONETIME ONE Stop: 05/28/19 07:24 Last Admin: 05/28/19 07:47 Dose: 25 mcg Nalbuphine HCl (Nubain) 10 mg IVPUSH Q1H PRN PRN Reason: Pain (severe 7-10) Sodium Chloride (Saline Flush) 10 ml FLUSH ASDIRECTED PRN PRN Reason: Keep Vein Open Sodium Chloride (Saline Flush) 2.5 ml FLUSH ASDIRECTED PRN PRN Reason: Keep Vein Open Sodium Chloride (Normal Saline) 10 ml IV ASDIRECTED PRN PRN Reason: IV Use Sterile Water (Sterile Water For Irrigation) 1,000 ml IRR ASDIRECTED PRN PRN Reason: delivery Last Admin: 05/28/19 13:07 Dose: 1,000 ml - Interaction Disposition, : in Room with Family Interaction: Holding Infant Feeding: Attempted ; Nursed Fair/Poor Support Person: - Recovery Exam Fundal Tone: Firm Fundal Level: 3 Fingerbreadths Below Umbilicus Fundal Placement: Midline Lochia Amount: Scant Lochia Color: Rubra/Red Perineum Description: Intact, Minimal Bruising/Swelling Other Perinuem Description: Second degree tear, repaired Episiotomy/Laceration: Approximated Bladder Status: Voiding Urinary Elimination: Voided - Exam General: Alert, Oriented Neck: Supple Lungs: Normal Respiratory Effort GI/Abdominal Exam: Soft, Non-Tender, No Distention Extremities: Normal Range of Motion, Non-Tender, No Pedal Edema Wound/Incisions: Healing Well Neurological: No New Focal Deficit Psy/Mental Status: Alert, Normal Affect, Normal Mood - Problem List & Annotations (1) PROM with onset of labor within 24 hours, delivered, [facility] SNOMED Code(s): 816119613, 384744443 Code(s): O42.00 - PEYTON ROM, ONSET LABOR W/N 24 HR OF RUPT, UNSP WEEKS OF GEST Status: Acute Current Visit: Yes - Problem List Review Problem List Initiated/Reviewed/Updated: Yes - My Orders Last 24 Hours: My Active Orders 05/28/19 13:58 Patient Status [ADT] Routine May Shower [RC] ASDIRECTED Up ad [place] [RC] ASDIRECTED Vital Signs [RC] PER UNIT ROUTINE Acetaminophen [Tylenol Extra Strength] 1,000 mg PO Q4H PRN Acetaminophen [Tylenol Extra Strength] 500 mg PO Q4H PRN Benzocaine/Menthol [Dermoplast Pain Relief 20%-0.5% [place]] 78 gm TOP ASDIRECTED PRN Docusate Sodium [Colace] 100 mg PO BID PRN Ibuprofen [Motrin] 400 mg PO Q4H PRN Ibuprofen [Motrin] 800 mg PO Q6H PRN Lanolin [Lansinoh HPA] See Dose Instructions TOP ASDIRECTED PRN Methylergonovine [Methergine] 0.2 mg IM ONETIME PRN Tranexamic Acid [Cyklokapron] 1,000 mg Sodium Chloride 0.9% [Normal Saline] 100 ml IV ONETIME bisacodyL [Dulcolax] 10 mg RECTAL ONETIME PRN oxyCODONE 5 mg PO Q2H PRN witch Jennifer [Tucks] 1 pad TOP ASDIRECTED PRN Assess Lochia [WOMSER] Per Unit Routine Assess Uterine Involution [WOMSER] Per Unit Routine Peripheral IV Discontinue [OM.PC] Routine Resuscitation Status Routine 05/28/19 13:59 Perineal Care [OM.PC] Per Unit Routine 05/28/19 Dinner Regular Diet [DIET] - Assessment Assessment:: PPD#1 after stable, minimal lochia, tolerating regular diet, well. Would like to go home today. - Plan Plan:: Discharge precautions reviewed.
[2019-05-29] MEDS: Acetaminophen 500 MG Tab PO PRN (11:54)
[2019-05-29] MEDS: Ibuprofen 800 MG Tab PO PRN (15:34)
[2019-05-30 07:55] VITALS: BP 135/76; PULSE 58
--- NOTE | 2019-05-30 08:11 | PCM.PNPP ---
- General Info Date of Service: 05/30/19 Functional Status: Reports: Pain Controlled, Tolerating Diet, Ambulating, Urinating - Review of Systems General: Reports: No Symptoms HEENT: Reports: No Symptoms Pulmonary: Reports: No Symptoms Cardiovascular: Reports: No Symptoms Gastrointestinal: Reports: No Symptoms Genitourinary: Reports: No Symptoms Musculoskeletal: Reports: No Symptoms Skin: Reports: No Symptoms Neurological: Reports: No Symptoms Psychiatric: Reports: No Symptoms - General Info Date of Service: 05/30/19 - Patient Data Vital Signs - Most Recent: Last Vital Signs Temp 36.1 C 05/30/19 07:45 Pulse 58 L 05/30/19 07:45 Resp 16 05/30/19 07:45 BP 135/76 05/30/19 07:45 Pulse Ox 99 05/30/19 07:45 Weight - Most Recent: 93.44 kg Med Orders - Current: Current Medications Acetaminophen (Tylenol Extra Strength) 500 mg PO Q4H PRN PRN Reason: Pain Acetaminophen (Tylenol Extra Strength) 1,000 mg PO Q4H PRN PRN Reason: Pain Last Admin: 05/29/19 11:54 Dose: 1,000 mg Benzocaine/Menthol (Dermoplast Pain Relief 20%-0.5% [place]) 78 gm TOP ASDIRECTED PRN PRN Reason: Perineal Comfort Measure Last Admin: 05/28/19 14:56 Dose: 1 canister Bisacodyl (Dulcolax) 10 mg RECTAL ONETIME PRN PRN Reason: Constipation Docusate Sodium (Colace) 100 mg PO BID PRN PRN Reason: Constipation Last Admin: 05/28/19 14:55 Dose: 100 mg Emollient Ointment (Lansinoh Hpa) 0 gm TOP ASDIRECTED PRN PRN Reason: Sore Nipples Last Admin: 05/28/19 14:55 Dose: 7 gm Tranexamic Acid 1,000 mg/ (Sodium Chloride) 110 mls @ 660 mls/hr IV ONETIME PRN PRN Reason: Bleeding Ibuprofen (Motrin) 400 mg PO Q4H PRN PRN Reason: Pain Ibuprofen (Motrin) 800 mg PO Q6H PRN PRN Reason: Pain Last Admin: 05/29/19 15:34 Dose: 800 mg Methylergonovine Maleate (Methergine) 0.2 mg IM ONETIME PRN PRN Reason: Excessive Vaginal Bleeding Oxycodone HCl (Oxycodone) 5 mg PO Q2H PRN PRN Reason: Pain Witch Emily (Tucks) 1 pad TOP ASDIRECTED PRN PRN Reason: comfort care Last Admin: 05/28/19 14:56 Dose: 1 tub Discontinued Medications Ampicillin Sodium (Ampicillin) Confirm Administered Dose 1 gm IV .STK-MED ONE Stop: 05/28/19 10:21 Butorphanol Tartrate (Stadol) 1 mg IVPUSH Q1H PRN PRN Reason: Pain Last Admin: 05/28/19 13:13 Dose: 1 mg Carboprost Tromethamine (Hemabate Ds) 250 mcg IM ASDIRECTED PRN PRN Reason: Post Hemorrhage Tranexamic Acid 1,000 mg/ (Sodium Chloride) 110 mls @ 660 mls/hr IV ONETIME PRN PRN Reason: Bleeding Ampicillin Sodium 2 gm/ Sodium (Chloride) 100 mls @ 200 mls/hr IV ONETIME ONE Stop: 05/28/19 07:09 Last Admin: 05/28/19 06:58 Dose: 200 mls/hr Lactated Ringer's (Ringers, Lactated) 1,000 mls @ 150 mls/hr IV ASDIRECTED MARY GRACE Last Admin: 05/28/19 13:02 Dose: 150 mls/hr Oxytocin/Sodium Chloride (Oxytocin 30 Unit/500 Ml-Ns) 30 unit in 500 mls @ 500 mls/hr IV TITRATE [facility] Ampicillin Sodium 1 gm/ Sodium (Chloride) 50 mls @ 100 mls/hr IV Q4H [facility] Ampicillin Sodium 1 gm/ Sodium (Chloride) 50 mls @ 100 mls/hr IV Q4H [facility] Sodium Chloride (Normal Saline) Confirm Administered Dose 0 mls @ as directed .ROUTE .STK-MED ONE Stop: 05/28/19 10:23 Ampicillin Sodium 1 gm/ Sodium (Chloride) 50 mls @ 100 mls/hr IV Q4H [facility] Last Admin: 05/28/19 10:47 Dose: 100 mls/hr Lidocaine HCl (Xylocaine 1%) 50 ml INJECT ONETIME PRN PRN Reason: Laceration repair Last Admin: 05/28/19 13:30 Dose: 50 ml Methylergonovine Maleate (Methergine) 0.2 mg IM ASDIRECTED PRN PRN Reason: Post Hemorrhage Misoprostol (Cytotec) 200 mcg PO ONETIME PRN PRN Reason: Post Hemorrhage Misoprostol (Cytotec) 25 mcg VAG ONETIME ONE Stop: 05/28/19 07:24 Last Admin: 05/28/19 07:47 Dose: 25 mcg Nalbuphine HCl (Nubain) 10 mg IVPUSH Q1H PRN PRN Reason: Pain (severe 7-10) Sodium Chloride (Saline Flush) 10 ml FLUSH ASDIRECTED PRN PRN Reason: Keep Vein Open Sodium Chloride (Saline Flush) 2.5 ml FLUSH ASDIRECTED PRN PRN Reason: Keep Vein Open Sodium Chloride (Normal Saline) 10 ml IV ASDIRECTED PRN PRN Reason: IV Use Sterile Water (Sterile Water For Irrigation) 1,000 ml IRR ASDIRECTED PRN PRN Reason: delivery Last Admin: 05/28/19 13:07 Dose: 1,000 ml - Interaction Infant Disposition, : in Room with Family Interaction: Holding Infant Infant Feeding: Attempted ; Nursed Fair/Poor Support Person: - Recovery Exam Fundal Tone: Firm Fundal Level: 3 Fingerbreadths Below Umbilicus Fundal Placement: Midline Lochia Amount: Scant Lochia Color: Rubra/Red Perineum Description: Intact, Minimal Bruising/Swelling Other Perinuem Description: Second degree tear, repaired Episiotomy/Laceration: Approximated Bladder Status: Voiding Urinary Elimination: Voided - Exam General: Alert, Oriented Lungs: Normal Respiratory Effort GI/Abdominal Exam: Soft, Non-Tender, No Distention Extremities: Normal Inspection, Non-Tender, No Pedal Edema Skin: Warm, Dry, Intact Neurological: No New Focal Deficit Psy/Mental Status: Alert, Normal Affect, Normal Mood - Problem List & Annotations (1) PROM with onset of labor within 24 hours, [facility] Code(s): 396699390, [id number] Code(s): O42.00 - PEYTON ROM, ONSET LABOR W/N 24 HR OF RUPT, UNSP WEEKS OF GEST Status: Acute Current Visit: Yes (2) Vaginal delivery SNOMED Code(s): 207434538 Code(s): O80 - ENCOUNTER FOR FULL-TERM UNCOMPLICATED DELIVERY Status: Acute Current Visit: Yes - Problem List Review Problem List Initiated/Reviewed/Updated: Yes - My Orders Last 24 Hours: My Active Orders 05/29/19 08:26 Ready for Discharge [RC] PER UNIT ROUTINE - Assessment Assessment:: PPD#2 after stable, minimal lochia, tolerating regular diet, well. Would like to go home today. - Plan Plan:: Discharge precautions reviewed.
== END 2019-05-30 13:15 | disposition home or self-care (01) | DRG 807 ==
LOC: MW.OBCHECK 05:39 → MW.OB 05:41 → MW.OBCHECK 06:32 → MW.OB 06:33 → OBSVTOIN 14:16 → MW.OB 16:39
PROVIDERS: ADMIT Obstetrics & Gynecology; ATTEND Obstetrics & Gynecology
PROC: 10E0XZZ Delivery of Products of Conception, External Approach (ICD-10-PCS; principal; 2019-05-28)
PROC: 0KQM0ZZ Repair Perineum Muscle, Open Approach (ICD-10-PCS; 2019-05-28)
PROC: 3E0P7VZ Introduction of Hormone into Female Reproductive, Via Natural or Artificial Opening (ICD-10-PCS; 2019-05-28)
DX: O42.013 Preterm premature rupture of membranes, onset of labor within 24 hours of rupture, third trimester (principal); Z37.0 Single live birth; O99.824 Streptococcus B carrier state complicating childbirth; O70.1 Second degree perineal laceration during delivery; Z3A.38 38 weeks gestation of pregnancy
CPT/HCPCS: 36415; 59025; 59409; 82803; 84112; 85014; 85018; 85027; 86592; 86593; 86850; 86870; 86900; 86901; A9270-GY; J0290; J0595; J2001; J7050; J7120